=== PATIENT | female | born 1970 | race Caucasian/White ===

== ENCOUNTER 2024-09-07 03:35 | Emergency (ER) | payer OTHER, SELFPAY ==
[2024-09-07 03:43] VITALS: BP 113/72; PULSE 120; RESP 18; TEMP 36.7; O2SAT 95; BMI 29.8
--- NOTE | 2024-09-07 04:02 | ED_ITS ---
HPI - General Adult General Chief complaint: Abdominal Pain Stated complaint: Abdominal pain, vomiting Time Seen by Provider: 09/07/24 03:51 Source: patient Mode of arrival: ambulatory Limitations: no limitations History of Present Illness HPI narrative: 54-year-old female presents the emergency department with 5 hours of abdominal pain in the epigastric region with vomiting and diarrhea. No trauma or injury. [place] well when she went to bed earlier in the evening. Did eat out last night but no signs of food contamination, no other family members are ill. No history of bowel obstructions. Pain radiates to the mid back slightly. Has not tried taking any medication to help with symptoms. No dysuria. No bloody stools, no bloody vomit. Has had stomach bugs before but never this severe per her report. Has been eating and drinking normally in the preceding days. No fever. Does have a prior history of abdominal surgery with a prior pelvic laparoscopy and also a hysterectomy. Does still have 1 ovary. No history of DVT or PE, no anticoagulant use. Past medical history notable for depression. Home med is bupropion 300 mg once daily per her report. Allergies true droperidol which caused a dystonic reaction. Prior surgeries include pelvic laparoscopy and hysterectomy. ROS is notable for the generalized and GI symptoms as above, otherwise denies times 12 systems. Related Data Allergies Allergy/AdvReac Type Severity Reaction Status Date / Time droperidol AdvReac Severe Anaphylaxis Verified 09/07/24 03:48 Exam Const: Vital Signs, click to edit/add: Vital Signs - 24 hr 09/07/24 03:43 Temperature 98.1 F Pulse Rate [Right Pulse Oximeter] 120 H Respiratory Rate 18 Blood Pressure [Ri ght Upper Arm] 113/72 Pulse Oximetry 95 Oxygen Delivery Me thod Room Air Documenting provider has reviewed patient's vital signs: yes Common normals: no apparent distress General appearance: cooperative and well kempt HENMT: Common normals: normocephalic, moist oral mucous membranes, oropharynx normal and dentition normal Head and scalp: normocephalic Eye: Common normals: conjunctivae normal General eye: normal appearance of both eyes Conjunctiva: conjunctiva(e) normal Neck & C-Spine: Common normals: full ROM General: normal visual inspection Chest: Common normals: inspection of chest normal Resp: Common normals: normal respiratory effort, no use of accessory muscles and clear to auscultation bilaterally Effort & inspection: able to speak in complete sentences Auscultation: clear to auscultation bilaterally Cardio: Common normals: regular rate, regular rhythm, S1 normal heart sound, S2 normal heart sound and no murmurs Rate: regular rate Rhythm: regular rhythm Heart sounds: S1 normal and S2 normal GI: Common normals: Normal to inspection, nondistended, normoactive bowel sounds present, soft to palpation, no hepatosplenomegaly and no masses Palpation: soft and no hepatosplenomegaly Other: Mildly tender to epigastrium only. No rebound tenderness or guarding. No tenderness to the other areas of the abdomen. : Common normals: no CVA tenderness Bladder/kidney exam: no CVA tenderness Back & Pelvis: Common normals: no CVA tenderness Extremity: Common normals: normal to inspection, normal capillary refill and no pedal edema Neuro: Common normals: moves all extremities and no focal motor deficits Speech: speech normal Psych: Appearance: well kempt Attitude: engaged Attention/concentration: attention grossly intact Insight: insight good Judgement: judgment good Skin: Common normals: no rashes or lesions noted General skin exam: no rashes or lesions noted Course Course ED Course: 54-year-old female with nausea, vomiting, diarrhea and epigastric tenderness. Exam does not show any signs of peritonitis. Afebrile and no hypotension. Recommend IV placement, bolus of normal saline. Zofran, Toradol. Will let that sit for about 20 minutes and then oral Imodium and famotidine. Typical abdominal labs. I do not see a need to warner into imaging but of labs are suspicious or if she does not improve with routine medication, would recommend CT. Suspect gastroenteritis but cannot exclude pancreatitis, obstruction, duodenal ulcer, gallbladder disease, colitis, esophageal issue, kidney stone, amongst others. Reevaluation(s) Time of Reevaluation #1: 04:53 Reevaluation #1: Patient still has some mild epigastric discomfort but does report feeling quite a bit better after the Toradol, Zofran, fluids. She is examined about 10 minutes after her famotidine and Imodium. She has not had any stools or vomiting here in the ED. She has completed her fluids. I would recommend that we not perform further workup and treat symptomatically at this time. Rationale is discussed and she is in agreement. Risk of radiation seems to outweigh the benefit. Counseled patient that there could potentially be more going on in terms of possibly gallbladder disease, mild case of pancreatitis, colitis. Unlikely obstruction based on exam. She verbalizes understanding and agreement of plan. Prescription for Zofran given. Discussed [id number], Tylenol, ibuprofen, Imodium p.r.n.. Push fluids, rest for today. Indications for return visit to the ED were reviewed and she verbalizes understanding and agreement. Written instructions provided. Vital Signs Vital signs: Initial Vital Signs Temperature 98.1 F 09/07/24 03:43 Temperature Source Temporal Artery Scan 09/07/24 03:43 Pulse Rate 120 H 09/07/24 03:43 Pulse Rhythm Regular 09/07/24 03:43 Pulse Strength 3+ Normal 09/07/24 03:43 Respiratory Rate 18 09/07/24 03:43 Blood Pressure 113/72 09/07/24 03:43 Blood Pressure Mean 85 09/07/24 03:43 Blood Pressure Position Sitting 09/07/24 03:43 Pulse Oximetry 95 09/07/24 03:43 Oxygen Delivery Method Room Air 09/07/24 03:43 Vital Signs Temperature 98.1 F 09/07/24 03:43 Pulse Rate 120 H 09/07/24 03:43 Respiratory Rate 18 09/07/24 03:43 Blood Pressure 113/72 09/07/24 03:43 Pulse Oximetry 95 09/07/24 03:43 Oxygen Delivery Method Room Air 09/07/24 03:43 Temperature 98.1 F 09/07/24 03:43 Pulse Rate 120 H 09/07/24 03:43 Respiratory Rate 18 09/07/24 03:43 Blood Pressure 113/72 09/07/24 03:43 Pulse Oximetry 95 09/07/24 03:43 Oxygen Delivery Method Room Air 09/07/24 03:43 Medications Administered Medications: Discontinued Medications Generic Name Dose Route Start Last Admin Trade Name Freq PRN Reason Stop Dose Admin Famotidine 20 mg 09/07/24 04:00 09/07/24 04:36 Famotidine 20 Mg Tablet PO 09/07/24 04:01 20 mg ONCE ONE Administration Sodium Chloride 500 mls @ 1,000 mls/hr 09/07/24 04:00 09/07/24 04:51 0.9 % Sodium Chloride 500 Ml IV 09/07/24 04:29 Infused .Q30M ONE Infusion Ketorolac Tromethamine 15 mg 09/07/24 04:02 09/07/24 04:15 Ketorolac 15 Mg/Ml Inj IVP 09/07/24 04:03 15 mg ONCE ONE Administration Loperamide HCl 4 mg 09/07/24 04:00 09/07/24 04:37 Loperamide Hcl 2 Mg Capsule PO 09/07/24 04:01 4 mg ONCE ONE Administration Ondansetron HCl 8 mg 09/07/24 04:00 09/07/24 04:12 Ondansetron 2 Mg/Ml Inj IVP 09/07/24 04:01 8 mg ONCE ONE Administration Medical Decision Making Lab Data Lab results reviewed: Yes I reviewed the patient's lab results Lab results narrative: Labs overall fairly reassuring. Very minimal leukocytosis but LFTs are not elevated. CRP is only very mildly elevated. Lipase normal. No signs of biliary obstruction. Lactate appropriate. Labs: Lab Results 09/07/24 Range/Units 04:07 WBC 11.65 H (4.50-11.00) K/uL RBC 5.12 (4.00-5.20) m/uL Hgb 15.4 (12.0-16.0) gm/dL Hct 45.0 (33.0-51.0) % MCV 88 (80-100) fL MCH 30 (26-34) pg MCHC 34 (32-36) gm/dL RDW Coeff of Nolan 12.2 (11.5-15.5) % Plt Count 209 (140-440) K/uL Neut % (Auto) 90.7 H (42.0-72.0) % Lymph % (Auto) 3.9 L (20-44) % [place] % (Auto) 4.7 (0.0-11.0) % Eos % (Auto) 0.3 (0.0-7.0) % Baso % (Auto) 0.2 (0.0-3.0) % Neut # (Auto) 10.60 H (1.7-7.0) K/uL Lymph # (Auto) 0.50 L (0.90-2.90) K/uL [place] # (Auto) 0.50 (0.00-0.90) K/UL Eos # (Auto) 0.00 (0.00-0.50) K/uL Baso # (Auto) 0.00 (0.00-0.30) K/uL Abs Immat Gran (auto) 0.00 (0.00-0.30) K/uL Imm/Tot Granulo (auto) 0.2 % Sodium 139 (135-149) mmol/L Potassium 4.6 (3.6-5.1) mmol/L Chloride 106 (96-114) mmol/L Carbon Dioxide 23 (20-32) mmol/L Anion Gap 10 (7-15) mEq/L BUN 20 (7-30) mg/dL Creatinine 0.7 (0.5-1.5) mg/dL Estimated Creat Clear 88.31 Estimated GFR 102 ml/min Glucose 159 H (60-115) mg/dL Lactate 1.5 (0.5-1.9) mmol/L Calcium 9.7 (8.4-10.6) mg/dL Total Bilirubin 0.7 (0.1-1.5) mg/dL AST 26 (12-35) U/L ALT 21 (4-35) U/L Alkaline Phosphatase 67 (40-150) U/L C-Reactive Protein 1.1 H (0.5-1.0) mg/dL Total Protein 7.2 (6.0-8.3) g/dL Albumin 4.7 (3.3-5.0) g/dL Lipase 91 (23-300) U/L Discharge Plan Discharge Clinical Impression: Gastroenteritis Patient Disposition: Home w/ Parent or Adult Condition: Improved Instructions: Gastroenteritis (DC) Additional Instructions: I am glad that things are improving with the medications. As discussed, it is difficult to tell if this is from a virus or from potentially food poisoning but we would not change our treatment unless there was a significant amount of blood or high fever. Continue to push fluids, slowly advancing foods as tolerated. I have given her prescription for some Zofran also known as ondansetron. This is a common prescription anti nausea medication. I would recommend that you take this every 6-8 hours automatically for 24 hours. You would be due for another dose at 10:00 a.m.. It is okay to continue Tylenol 1000 mg every 6 hours and/or ibuprofen 600 mg every 6 hours as needed for discomfort. There are no signs of pancreatitis, gallbladder obstruction, or other complication based on your labs. If symptoms worsen, you have high fever, persistent vomiting and or other signs of complication, please return to the emergency department. I would have a low threshold for doing a CT or ultrasound. We are seeing quite a few people with similar symptoms to your is right now. They typically improve in 3- 5 days, so longer than a typical stomach flu. It is also okay to use [id number] Imodium 2 mg every couple hours as needed. Often, the dose that I gave in the ED is sufficient for treatment so I would not recommend you automatically take that unless you have further bouts of diarrhea. Please automatically take the Zofran for today, then decrease to as needed for the following few days. If things are not worsening but not improving after 5 days, please make a follow-up appointment with your primary care provider or be re- evaluated in urgent care. Rest for today, return to typical duty Sunday. Activity Level: Activity as Tolerated Discharge Diet: Regular Follow Up/Referrals: Provider,Not a Local [Primary Care Provider] - Stand Alone Forms: [employer] Info Instructions
[2024-09-07] MEDS: ONDANSETRON 2 MG/ML inj 8 MG IVP (04:12)
[2024-09-07] MEDS: 0.9 % SODIUM CHLORIDE 500 ML 500 ML 1000 ML IV (04:13)
[2024-09-07 04:14] LABS: Lactate* 1.5 mmol/L (0.5-1.9)
[2024-09-07 04:15] LABS: Basophils Percent Auto 0.2 % (0.0-3.0); Eosinophils Percent Auto 0.3 % (0.0-7.0); Hemoglobin* 15.4 gm/dL (12.0-16.0); Immature Granulocytes Pct Auto 0.2 %; Lymphocytes Percent Auto 3.9 % (20-44); Mean Corpuscular HGB Conc 34 gm/dL (32-36); Mean Corpuscular Hemoglobin 30 pg (26-34); Mean Corpuscular Volume 88 fL (80-100); Monocytes Percent Auto 4.7 % (0.0-11.0); Neutrophils Percent Auto 90.7 % (42.0-72.0); Platelet Count* 209 K/uL (140-440); RDW Coefficient of Variation % 12.2 % (11.5-15.5); Red Blood Count 5.12 m/uL (4.00-5.20); White Blood Count* 11.65 K/uL (4.50-11.00)
[2024-09-07] MEDS: KETOROLAC 15 MG/ML inj IVP (04:15)
[2024-09-07 04:20] LABS: Slide Review Reflex No
[2024-09-07 04:32] LABS: Albumin* 4.7 g/dL (3.3-5.0); Chloride* 106 mmol/L (96-114); Sodium* 139 mmol/L (135-149)
[2024-09-07 04:33] LABS: Potassium* 4.6 mmol/L (3.6-5.1)
[2024-09-07 04:35] LABS: Alkaline Phosphatase* 67 U/L (40-150); Anion Gap 10 mEq/L (7-15); Aspartate Amino Transferase* 26 U/L (12-35); Bilirubin Total* 0.7 mg/dL (0.1-1.5); Carbon Dioxide* 23 mmol/L (20-32); Creatinine* 0.7 mg/dL (0.5-1.5); Est. Creatinine Clearance* 88.31; Estimated Glomerular Filt Rate 102 ml/min; Lipase* 91 U/L (23-300); Total Protein* 7.2 g/dL (6.0-8.3)
[2024-09-07 04:36] LABS: Alanine Aminotransferase* 21 U/L (4-35); Blood Urea Nitrogen* 20 mg/dL (7-30); Calcium* 9.7 mg/dL (8.4-10.6); Glucose* 159 mg/dL (60-115)
[2024-09-07] MEDS: FAMOTIDINE 20 MG TABLET PO (04:36)
[2024-09-07] MEDS: LOPERAMIDE HCL 2 MG CAPSULE 4 MG PO (04:37)
[2024-09-07 04:38] LABS: C Reactive Protein* 1.1 mg/dL (0.5-1.0)
== END 2024-09-07 05:00 | disposition home or self-care (01) ==
PROVIDERS: Emergency Provider Family Medicine
DX: K52.9 Noninfective gastroenteritis and colitis, unspecified (principal)
CPT/HCPCS: 36415; 80053; 81003; 83605; 83690; 85025; 86140; 96374; 96375; 99283; 99284; A9270; J1885; J2405; J7030